=== PATIENT | male | born 1950 | race African-American/Black ===

== ENCOUNTER → 2017-06-01 | Outpatient (CLI) | payer MEDICARE ==
[~2017-06-01] MED LIST: ACETAMINOPHEN 1000 MG/100 ML 100 ML IV ONE; ADVA230A PO; ADVA250A INH; AMLO5 PO; AMLO5TAB2 PO; CENTCHW4 CHEW; CENTTAB20; DIVA250T PO; FINA5TAB2 PO; FINA5TAB77; LOSA100T PO; POTA550T4 PO; VALS1TAB49; VITA1000 PO
[2017-06-01 14:04] LABS: HEMATOCRIT 43.9 % (39.0-51.0); HEMOGLOBIN 14.6 GM/DL (13.0-17.0); MEAN CELL VOLUME 81.4 FL (80.0-100.0); MEAN CORPUSCULAR HEMOGLOBIN 27.1 PG (27.0-34.0); MEAN CORPUSCULAR HGB CONC 33.3 % (32.0-36.0); MEAN PLATELET VOLUME 8.3 FL (7.0-11.0); PLATELET COUNT 185 TH/MM3 (150-450); RED BLOOD COUNT 5.39 MIL/MM3 (4.50-5.90); RED CELL DISTRIBUTION WIDTH 13.5 % (11.6-17.2); WHITE BLOOD COUNT 5.1 TH/MM3 (4.0-11.0)
--- NOTE | 2017-06-03 23:58 | EKG ---
Date Performed: 06/01/2017 Time Performed: 13:14:04 PTAGE: 67 years EKG: Sinus rhythm . Normal ECG PREVIOUS TRACING : 08/29/2012 08.04 DOCTOR: Yahir Bacon Interpretating Date/Time 06/03/2017 23:56:36
== END ==
LOC: CPRE 12:54
PROVIDERS: ATTEND Specialist
DX: Z01.812 Encounter for preprocedural laboratory examination (principal); Z01.810 Encounter for preprocedural cardiovascular examination; J32.0 Chronic maxillary sinusitis; J34.3 Hypertrophy of nasal turbinates; J34.2 Deviated nasal septum
CPT/HCPCS: 36415; 85027; 93005; J0131

== ENCOUNTER → 2017-06-02 | Day surgery (SDC) | payer MEDICARE ==
--- NOTE | 2017-06-01 16:21 | MH ---
cc: TRUNG JAFFE Corrected: 06/06/2017 DATE OF ADMISSION 06/01/2017 INDICATION This is a 67-year-old gentleman with chronic sinusitis and nasal obstruction for nasal sinus surgery. PAST MEDICAL HISTORY Notable for: High blood pressure. PAST SURGICAL HISTORY Notable for previous nasal surgery. REVIEW OF SYSTEMS Unremarkable. FAMILY HISTORY Unremarkable. SOCIAL HISTORY Unremarkable. PHYSICAL EXAMINATION GENERAL: Well-appearing patient no acute distress noted. HEENT: Exam reveals mucopurulent secretion, septal deviation, left and right middle meatus. LUNGS: Clear. HEART: Regular rate and rhythm. ABDOMEN: Soft and nontender. EXTREMITIES: Without cyanosis, clubbing or edema. NEUROLOGIC: Neurologically alert and oriented, nonfocal neurologic exam. IMPRESSION The patient with chronic sinusitis and nasal obstruction for nasal sinus surgery. The patient instructed in the method of surgery including complications including anesthetic complications, cardiac difficulty, pulmonary difficulty, stroke, or even . Surgical complications bleeding, infection, risk of transfusion, risk of injury to orbit including blindness and diplopia, risk of injury to brain including CSF leak, meningitis, brain ____ abscess or even . The patient appeared to agree, accept and understand the above-mentioned risks and benefits. In addition no guarantees or warranties regarding outcome were given. We will therefore proceed with surgery. MD SHYAM Kunz/LISA /3:42 PM /3:50 PM [facility]
[~2017-06-02] VITALS: Ht 182.9 cm; Wt 110.2 kg
[~2017-06-02] MED LIST changes: +*HYDROmorphone PF 1 MG VIAL PERIprocedural Use ONLY ONE; +*diphenhydrAMINE HCL 50 MG/ML VIAL PERIprocedural Use ONLY ONE; +*morphine SULFATE 4 MG/ML PERIprocedure ONLY ONE; -ACETAMINOPHEN 1000 MG/100 ML 100 ML IV ONE; -ADVA230A PO; -AMLO5 PO; -CENTTAB20; +CHLORHEXIDINE GLUCONATE 2 % 1 PACK (2 CLOTHS) TOPICAL PRN; +DEXAMETHASONE SOD PHOS 4 MG/ML VIAL IV ONE; +DO NOT ADM ANY ANTICOAGULANT DRUGS PRN; +EPINEPHrine HCL (1:1000) 30 MG/30 ML VIAL ONE; -FINA5TAB77; +LACTATED RINGER'S 1000 ML IV PRN; +LIDOCAINE 1%/EPINEPHrine 1:100,000 SOLN 20 ML VIAL ONE; +LIDOCAINE HCL 1% PF 5 ML SYRINGE OTHER ONE; +METOPROLOL TARTRATE 25 MG TAB PO PRN; +ONDANSETRON HCL 4 MG/2 ML VIAL IV ONE; +ONDANSETRON HCL 4 MG/2 ML VIAL IV PUSH PRN; +PHENYLEPH/NS 1000 MCG/10 ML SYR IV ONE; -POTA550T4 PO; +POVIDONE IODINE 5% (ANTISEPSIS KIT) 4 APPLICATIONS EACH NARE PRN; +PROPOFOL 200 MG/20 ML AMP IV ONE; +SODIUM CHLORID 0.9% 500 ML IV PRN; +SUCCINYLCHOLINE CHLORIDE 100 MG/5 ML SYRINGE IV PUSH ONE; -VALS1TAB49
--- NOTE | 2017-06-02 10:21 | MP ---
cc: TRUNG JAFFE DATE OF OPERATION 06/02/2017 PREOPERATIVE DIAGNOSES Nasal obstruction. Chronic sinusitis. PROCEDURES 1. Bilateral endoscopic frontal sinusotomy. 2. Bilateral endoscopic anterior-posterior ethmoidectomy. 3. Bilateral endoscopic maxillary antrostomy with removal of tissue. 4. Bilateral inferior turbinectomy, submucous resection. ANESTHESIA General anesthesia. ESTIMATED BLOOD LOSS 150 cc. COMPLICATIONS No complications. OPERATION FOLLOWS Prepped and draped in usual fashion. 1% Xylocaine with 1:100,000 epinephrine was injected into the middle meatus and the middle turbinate bilaterally and the inferior turbinate bilaterally. Under endoscopic visualization a significant amount of fungal debris was noted in the left maxillary sinus. The anterior-posterior ethmoidectomy and the frontal sinus recess dissection were performed after removing the uncinate under endoscopic visualization with microdebrider. Frontal sinus recess dissection was performed with microdebrider. The natural antrostomy enlarged and significant polypoid tissue suctioned from it and multiple irrigations clearing the fungal debris from the left maxillary sinus were performed. A Telfa splint was placed in the middle meatus on the left side. Attention was turned to the right side where under endoscopic visualization moderate erythema and edema and polypoid mucosal change were noted in the middle meatus and in the antrum and the natural antrostomy enlarged with a microdebrider and polypoid tissue suctioned from it. Anterior-posterior ethmoidectomy and frontal sinus recess dissection performed as well under endoscopic visualization. A Telfa splint was placed on the right side. Multiple insertions using the Coblator probe with power level IV were employed to reduce the inferior turbinate bilaterally submucosally. No active bleeding noted. Nose was suctioned. The patient tolerated the procedure well. MD SHYAM Kunz/JENS /9:46 AM /9:58 AM
[2017-06-02 12:05] VITALS: BP 134/78; PULSE 63; RESP 16; O2SAT 98
== END | disposition home or self-care (01) ==
LOC: HSDC 06:08
PROVIDERS: ATTEND Specialist
DX: J34.3 Hypertrophy of nasal turbinates (principal); J32.9 Chronic sinusitis, unspecified; J34.2 Deviated nasal septum; I10 Essential (primary) hypertension; J32.0 Chronic maxillary sinusitis
CPT/HCPCS: 00160; 30140; 31255; 31267; 31276; J0171; J0330; J1100; J1170; J1200; J2270; J2370; J2405; J3010; J7120